=== PATIENT | female | born 2000 | race Caucasian/White ===

== ENCOUNTER 2019-06-01 13:51 | Emergency (ER) | payer BC ==
[2019-06-01 14:07] VITALS: BP 127/60
--- NOTE | 2019-06-01 14:37 | UC ---
Hand/Wrist HPI - HPI Summary HPI Summary: patient was cheer leading 2 days ago and injured L 4th finger (thinks she got stepped on - but not sure). finger turned black and blue and swollen, she did not see deformity dahlia taped finger but today is still painful. - History Of Current Complaint Chief Complaint: UCUpperExtremity Stated Complaint: FINGER INJURY Time Seen by Provider: 06/01/19 14:16 Hx Obtained From: Patient Hx Last Menstrual Period: 05/21/19 Onset/Duration: Sudden Onset Severity Initially: Moderate Severity Currently: Mild Pain Intensity: 3 Character Of Pain: Stiffness Aggravating Factor(s): Movement Alleviating Factor(s): Rest Associated Signs And Symptoms: Positive: Swelling, Bruising Related History: Dominant Hand Right - Allergies/Home Medications Home Medications: Home Medications NK [No Home Medications Reported] 06/01/19 [History Confirmed 06/01/19] PMH/Surg Hx/FS Hx/Imm Hx Previously Healthy: Yes - Surgical History Surgical History: Yes Surgery Procedure, Year, and Place: right acl repair - Family History Known Family History: Positive: None - Social History Occupation: Student Lives: With Family Alcohol Use: Occasionally Substance Use Type: None Smoking Status (MU): Never Smoked Tobacco - Immunization History Vaccination Up to Date: Yes Review of Systems All Other Systems Reviewed And Are Negative: Yes Constitutional: Positive: Negative Skin: Positive: Bruising - palm surface L 4th finger Respiratory: Positive: Negative Cardiovascular: Positive: Negative Neurological: Positive: Negative Psychological: Positive: Negative Is Patient Immunocompromised?: No Physical Exam Triage Information Reviewed: Yes Appearance: Well-Appearing, No Pain Distress, Well-Nourished Vital Signs: Initial Vital Signs Temp 98.7 F 06/01/19 14:01 Pulse 50 06/01/19 14:01 Resp 20 06/01/19 14:01 BP 127/60 06/01/19 14:01 Pulse Ox 99 06/01/19 14:01 Vital Signs Reviewed: Yes Respiratory Exam: Normal Respiratory: Positive: Lungs clear Cardiovascular Exam: Normal Cardiovascular: Positive: RRR Musculoskeletal: Positive: ROM Intact, Strength Limited @, Other: - pain left 4th PIP joint with flexion Neurological Exam: Normal Psychological Exam: Normal Skin: Negative: Rashes Hand/Wrist Course/Dx - Differential Dx/Diagnosis Differential Diagnosis/HQI/PQRI: Contusion, Fracture, Strain Provider Diagnosis: Finger strain Discharge ED - Sign-Out/Discharge Documenting (check all that apply): Patient Departure All imaging exams completed and their final reports reviewed: No Studies - Discharge Plan Condition: Good Disposition: HOME Patient Education Materials: Finger Sprain (ED) Forms: *Gen. Provider Communication Referrals: Jovita Ray MD [Primary Care Provider] - Additional Instructions: elevate finger and use ibuprofen as directed for pain may dahlia tape finger for pain relief see orthopedics if no better 2 weeks - Billing Disposition and Condition Condition: GOOD Disposition: Home
== END 2019-06-01 15:05 | disposition home or self-care (01) ==
LOC: UCEAST 13:51
DX: S56.416A Strain of extensor muscle, fascia and tendon of left ring finger at forearm level, initial encounter (principal); X58.XXXA Exposure to other specified factors, initial encounter; Y93.45 Activity, cheerleading; Y92.9 Unspecified place or not applicable
CPT/HCPCS: 73140; 99211; G0463